=== PATIENT | male | born 1975 | race Hispanic/Latino ===

== ENCOUNTER 2021-05-22 20:36 | Emergency (ER) | payer SELFPAY ==
[2021-05-22 20:40] VITALS: BP 124/81; PULSE 119; RESP 13; TEMP 37.6; O2SAT 99; BMI 47.9
--- NOTE | 2021-05-22 21:10 | PC.NURSE ---
Patient had a toothache on the back lower side for several days and this morning his left jaw swelled up and started aching.
--- NOTE | 2021-05-22 21:22 | DI.CT.S_ITS ---
PROCEDURE: CT SOFT TISSUE NECK W CON INDICATIONS: swelling pain TECHNIQUE: After the administration of intravenous contrast, 3.0 mm axial sections acquired from the sella to the aortic arch. Additional oblique axial 3.0 mm sections acquired through the pharynx. 3 mm thick coronal and sagittal reformats were generated. For radiation dose reduction, the following was used: automated exposure control. COMPARISON: None. FINDINGS: Image quality: Excellent. Lymph nodes: Within the left submandibular region, there are borderline prominent lymph nodes seen, yet without tracy enlargement. Prominent lymph nodes can be seen elsewhere, without focal enlargement. The largest of these is a right level 2A lymph node seen, as on series 2, image 38, measuring 15 x 9 mm in greatest axial dimension. Vessels: Visualized vasculature appears patent. Neck spaces: Mild generalized soft tissue swelling can be seen involving the left submental region, with generalized soft tissue swelling and thickening of the platysma muscle. There is no fluid collection seen to suggest abscess. The oropharynx, nasopharynx, and pharynx demonstrate no mucosal lesions. The vocal cords, false vocal cords, pyriform sinuses, epiglottis, vallecula, and tongue base all appear normal. Glands: The parotid glands demonstrate symmetric prominence with fatty infiltration. The submandibular glands demonstrate no focal abnormality, although the right submandibular gland is asymmetrically larger than the left. No submandibular mass can be seen. Thyroid gland demonstrates no significant abnormality. Miscellaneous: Visualized brain and orbits appear normal. Lung apices appear clear. Superficial soft tissues appear normal. Bones: No suspicious bony lesions. Visualized sinuses and mastoids appear unremarkable. IMPRESSION: Within the left submental region, there is generalized soft tissue swelling with thickening of the platysma muscle. There is no associated abscess. Mild prominence of the lymph nodes can be seen, without pathologic enlargement. Dictated by: Edward Aquino M.D. on 05/22/2021 at 21:21 Approved by: Edward Aquino M.D. on 05/22/2021 at 21:25
--- NOTE | 2021-05-22 21:24 | ED_ITS ---
HPI - Dental/Oral General Chief complaint: Dental/Oral Stated complaint: lump on left jaw Time Seen by Provider: 05/22/21 21:15 Source: patient Mode of arrival: Ambulatory Limitations: no limitations History of Present Illness HPI Narrative: Patient is a 45-year-old male who presents with left-sided dental and jaw pain. He said it started abruptly this morning around 1:00 a.m.. He has had increased swelling on his jaw. He feels like it is difficult to swallow although he is managing his secretions fine. 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 He denies fever or chills. He is having right lower jaw dental pain. He has some mild tongue pain. No chest pain. He has a BMI of 48 and does not go to doctors Related Data Previous Rx's Medication Instructions Recorded amoxicillin 875 mg-potassium 1 tab PO Q12H #10 tab 05/23/21 clavulanate 125 mg tablet (Augmentin) Allergies Allergy/AdvReac Type Severity Reaction Status Date / Time No Known Drug Allergies Allergy Verified 05/22/21 20:43 Review of Systems Review of Systems Narrative: GENERAL: Denies chills, fatigue, malaise, fever, sweats, travel HEENT: See HPI RESPIRATORY: Denies dyspnea, cough, wheezing, hemoptysis, sputum. CARDIOVASCULAR: Denies chest pain, palpitations, orthopnea, edema GASTROINTESTINAL: Denies nausea, vomiting, abdominal pain, diarrhea, constipation, melena. : Denies dysuria, frequency, incontinence, hematuria, urinary retention, flank pain. MUSCULOSKELETAL: Denies weakness, joint pain, or bony pain SKIN: No rash, no erythema, no pruritus NEUROLOGIC: Denies weakness, dizziness, headache, numbness, change in speech, confusion PSYCHIATRIC: No concerning psychosocial issues. 12 point review of systems is negative except for those stated above and HPI Patient History Social History Smoking Status: Current some day smoker Smoking Status: Current some day smoker alcohol intake frequency: holidays/special occasions only Substance Use Type: does not use Exam Initial Vital Signs Initial Vital Signs: Vital Signs Temperature 99.6 F 05/22/21 20:40 Pulse Rate 119 H 05/22/21 20:40 Respiratory Rate 13 05/22/21 20:40 Blood Pressure 124/81 05/22/21 20:40 Pulse Oximetry 99 05/22/21 20:40 Course Orders Ordered: ED Orders 05/22/21 21:22 CT soft tissue neck w con Stat 05/22/21 21:30 Complete Blood Count AUTO DIFF Stat Comprehensive Metabolic Panel Stat Discontinued Medications Dexamethasone (Dexamethasone 10 Mg/Ml Vial) 10 mg IV NOW ONE Stop: 05/22/21 22:57 Last Admin: 05/22/21 23:04 Dose: 10 mg Documented by: ALEX Ampicillin Sodium/Sulbactam (Sodium 3 gm/ Sodium Chloride) 100 mls @ 100 mls/hr IV NOW ONE Stop: 05/22/21 22:57 Last Infusion: 05/23/21 00:05 Dose: 0 mls/hr Documented by: Admin: 05/22/21 23:04 Dose: 100 mls/hr Documented by: ALEX Ketorolac Tromethamine (Ketorolac 30 Mg/Ml Vial) 15 mg IV NOW ONE Stop: 05/22/21 21:23 Last Admin: 05/22/21 21:40 Dose: 15 mg Documented by: ALEX Vital Signs Vital signs: Vital Signs - 8 hr 05/22/21 20:40 05/23/21 00:55 Temperature 99.6 F 98.2 F Pulse Rate 119 H 95 H Respiratory Rate 13 16 Blood Pressure 124/81 123/72 Pulse Oximetry 99 95 MDM - Dental/Oral Lab Data Result diagrams: 05/22/21 21:30 05/22/21 21:30 Labs: Lab Results 05/22/21 05/22/21 Range/Units 21:30 21:30 WBC 16.0 H (4.5-11.0) X10^3/uL RBC 5.52 (4.5-5.9) X10^6/uL Hgb 16.7 (13.5-17.5) g/dL Hct 50.0 (41-53) % MCV 90.6 (80-100) fL MCH 30.3 (26-34) PG MCHC 33.5 (30-36) % RDW 13.7 (11.6-14.8) % Plt Count 239 (150-400) X10^3/uL Neut % (Auto) 71.2 (50-75) % Lymph % (Auto) 17.3 L (25-40) % Harrison % (Auto) 7.5 (3-14) % Eos % (Auto) 3.5 (2-4) % Baso % (Auto) 0.5 (0-2) % Neut # (Auto) 12411 H (2280-8092) /uL Lymph # (Auto) 2800 (9980-9969) /uL Harrison # (Auto) 1200 H (0-900) /uL Eos # (Auto) 600 H (0-450) /uL Baso # (Auto) 100 (0-100) /uL Sodium 139 (137-145) mmol/L Potassium 4.0 (3.4-5.1) mmol/L Chloride 101 (98-107) mmol/L Carbon Dioxide 30 (22-32) mmol/L BUN 15 (9-20) mg/dL Creatinine 1.01 (0.66-1.25) mg/dL Estimated GFR > 60.0 (>60) mL/min BUN/Creatinine Ratio 14.9 (6-22) Glucose 116 H (70-100) mg/dL Calcium 9.7 (8.4-10.2) mg/dL Total Bilirubin 0.9 (0.2-1.3) mg/dL AST 27 (17-59) IU/L ALT 27 (<50) IU/L Alkaline Phosphatase 74 (38-126) U/L Total Protein 8.6 H (6.3-8.2) g/dL Albumin 4.7 (3.5-5.0) g/dL Globulin 3.9 (1.7-4.1) g/dL Albumin/Globulin Ratio 1.2 (1.0-2.8) Imaging Data CT soft tissue neck: Radiologist's Impression: PROCEDURE:? CT SOFT TISSUE NECK W CON ? INDICATIONS:? swelling pain ? TECHNIQUE:? After the administration of intravenous contrast, 3.0 mm axial sections acquired from the sella to the aortic arch.? Additional oblique axial 3.0 mm sections acquired through the pharynx.? 3 mm thick coronal and sagittal reformats were generated.? For radiation dose reduction, the following was used:? automated exposure control.? ? COMPARISON:? None. ? FINDINGS:? Image quality:? Excellent.? ? Lymph nodes:? Within the left submandibular region, there are borderline prominent lymph nodes seen, yet without tracy enlargement.? Prominent lymph nodes can be seen elsewhere, without focal enlargement.? The largest of these is a right level 2A lymph node seen, as on series 2, image 38, measuring 15 x 9 mm in greatest axial dimension. ? Vessels:? Visualized vasculature appears patent.? ? Neck spaces:? Mild generalized soft tissue swelling can be seen involving the left submental region, with generalized soft tissue swelling and thickening of the platysma muscle.? There is no fluid collection seen to suggest abscess. ? The oropharynx, nasopharynx, and pharynx demonstrate no mucosal lesions.? The vocal cords, false vocal cords, pyriform sinuses, epiglottis, vallecula, and tongue base all appear normal.? ? Glands:? The parotid glands demonstrate symmetric prominence with fatty infiltration.? ? The submandibular glands demonstrate no focal abnormality, although the right submandibular gland is asymmetrically larger than the left.? No submandibular mass can be seen. ? Thyroid gland demonstrates no significant abnormality.? ? Miscellaneous:? Visualized brain and orbits appear normal.? Lung apices appear clear.? Superficial soft tissues appear normal. ? Bones:? No suspicious bony lesions.? Visualized sinuses and mastoids appear unremarkable. ? IMPRESSION:? Within the left submental region, there is generalized soft tissue swelling with thickening of the platysma muscle.? ? There is no associated abscess. ? Mild prominence of the lymph nodes can be seen, without pathologic enlargement. ? Dictated by: Edward Aquino M.D. on 05/22/2021 at 21:21 ? ? Approved by: Edward Aquino M.D. on 05/22/2021 at 21:25 ? MDM Narrative Medical decision making narrative: Patient has BMI of 48 and large neck. Upon palpation he does have some swelling of his left submandibular area no significant erythema or mass. He has no trismus. He is managing his own secretions well. He does have leukocytosis of 16,[address] does show a thickened platysma is muscle but no abscess. Also left submandibular lymph nodes are borderline without tracy enlargement. He has some mild generalized soft tissue swelling as well. Overall very minimal symptoms. He is given 1 dose of Unasyn and dose of dexamethasone. He says that he is starting to feel a bit better. No this may be early signs of a deep neck space infection is possible early Jerry angina patient overall appears pretty well and symptoms are relatively mild. At this time his he can be started on outpatient antibiotics. I have discussed with him many times have low threshold for returning back to the emergency department. And if he should have any difficulty breathing or swallowing he needs to return immediately. He un derstands and agrees to this. I discussed all findings with the patient, Education has been performed regarding treatment plan, diagnosis, warning signs and symptoms and all concerns have been addressed. Verbally agree with and understood all of the above. Discharge Plan Departure Patient Disposition: Home Clinical Impression: Dental infection Instructions: DI for Dental Pain Activity Restrictions/Additional Instructions: *You have been diagnosed with dental infection and soft tissue neck infection *What to do: At this time you do not have an abscess in your neck. You have some thickening of muscles causing her swelling. You should start to have improvement with antibiotics. However if you should have any new or worsening symptoms in any way please feel free to return to emergency department at any time *Continue to take medications as directed Augmentin 875 mg twice a day for 10 days *Follow up with your primary care provider in 2-3 days *Return to ER if you should have any increased swelling, difficulty swallowing, difficulty breathing, redness, facial swelling, neck swelling or any new, worsening or concerning symptoms Prescriptions: New amoxicillin-pot clavulanate [Augmentin] 875-125 mg tablet 1 tab PO Q12H Qty: 10 RF: 0
[2021-05-22 21:37] LABS: Add Manual Diff / Slide Review NO; Basophils Absolute Auto 100 /uL (0-100); Basophils Percent Auto 0.5 % (0-2); Eosinophils Absolute Auto 600 /uL (0-450); Eosinophils Percent Auto 3.5 % (2-4); Hemoglobin 16.7 g/dL (13.5-17.5); Lymphocytes Absolute Auto 2800 /uL (1100-4500); Lymphocytes Percent Auto 17.3 % (25-40); Mean Corpuscular HGB Conc 33.5 % (30-36); Mean Corpuscular Hemoglobin 30.3 PG (26-34); Mean Corpuscular Volume 90.6 fL (80-100); Monocytes Absolute Auto 1200 /uL (0-900); Monocytes Percent Auto 7.5 % (3-14); Neutrophils Absolute Auto 11400 /uL (1500-7000); Neutrophils Percent Auto 71.2 % (50-75); Platelet Count 239 X10^3/uL (150-400); Red Blood Cell Count 5.52 X10^6/uL (4.5-5.9); Red Cell Distribution Width 13.7 % (11.6-14.8)
[2021-05-22] MEDS: KETOROLAC 30 MG/ML VIAL 15 MG IV (21:40)
[2021-05-22 21:49] LABS: Alanine Aminotransferase 27 IU/L (<50); Albumin 4.7 g/dL (3.5-5.0); Albumin Globulin Ratio 1.2 (1.0-2.8); Alkaline Phosphatase 74 U/L (38-126); Aspartate Aminotransferase 27 IU/L (17-59); BUN Creatinine Ratio 14.9 (6-22); Bilirubin Total 0.9 mg/dL (0.2-1.3); Blood Urea Nitrogen 15 mg/dL (9-20); Calcium 9.7 mg/dL (8.4-10.2); Carbon Dioxide 30 mmol/L (22-32); Chloride 101 mmol/L (98-107); Estimated Glomerular Filt Rate > 60.0 mL/min (>60); Globulin 3.9 g/dL (1.7-4.1); Glucose 116 mg/dL (70-100); HEMOLYSIS < 15 (0-50); Sodium 139 mmol/L (137-145); Total Protein 8.6 g/dL (6.3-8.2)
[2021-05-22] MEDS: DEXAMETHASONE 10 MG/ML VIAL IV (23:04)
[2021-05-22] MEDS: AMPICILLIN/SULBACTAM 3 GM 3 GM in SODIUM CHLORIDE 0.9% 100 ML IV (23:04)
[2021-05-23 00:55] VITALS: BP 123/72; PULSE 95; RESP 16; TEMP 36.8; O2SAT 95
== END 2021-05-23 00:56 | disposition home or self-care (01) ==
PROVIDERS: Emergency Provider Emergency Medicine
DX: K04.7 Periapical abscess without sinus (principal)
CPT/HCPCS: 36415; 70491; 80053; 85025; 96365; 96375; 99284; J0295; J1100; J1885; Q9967